=== PATIENT | male | born 1990 | race Caucasian/White ===

== ENCOUNTER 2018-01-30 01:00 | Emergency (ER) | payer BC ==
[~2018-01-30] VITALS: Ht 170.2 cm; Wt 127.2 kg
[2018-01-30 01:02] VITALS: Ht 170.2 cm; Wt 127.2 kg
[2018-01-30 02:47] LABS: BASOPHIL % 0.6 % (0-2); PLATELET COUNT 219 x10^3mcL (130-400)
[2018-01-30 03:45] LABS: ALKALINE PHOSPHATASE 57 U/L (46-116); ALT/SGPT 77 U/L (16-63); AST/SGOT 29 U/L (15-37); BILIRUBIN TOTAL 0.66 mg/dL (0.20-1.00); TOTAL PROTEIN, SERUM 7.7 g/dL (6.4-8.2)
[2018-01-30 03:56] LABS: CALCIUM 9.2 mg/dL (8.5-10.1); CARBON DIOXIDE 25.3 mmol/L (21-32); CHLORIDE SERUM 104 mmol/L (98-107); CREATININE SERUM 0.7 mg/dL (0.7-1.3); GFR1 > 60 mL/min; GLUCOSE SERUM 99 mg/dL (74-106); POTASSIUM SERUM 4.2 mmol/L (3.5-5.1); SODIUM SERUM 143 mmol/L (136-145)
[2018-01-30 06:31] VITALS: BP 126/81
== END 2018-01-30 06:31 | disposition home or self-care (01) ==
LOC: ED 01:00
PROVIDERS: Emergency Medicine
DX: R07.89 Other chest pain (principal); R06.02 Shortness of breath
CPT/HCPCS: 36415; 83880